=== PATIENT | female | born 1980 | race Caucasian/White ===

== ENCOUNTER 2021-05-28 07:20 | Emergency (ER) | payer SELFPAY ==
--- NOTE | 2021-05-28 07:58 | EDM.PDOC ---
ED HPI GENERAL MEDICAL PROBLEM - General Chief Complaint: Genitourinary Problem Stated Complaint: POSS UTI Time Seen by Provider: 05/28/21 07:41 Source of Information: Reports: Patient History Limitations: Reports: No Limitations - History of Present Illness INITIAL COMMENTS - FREE TEXT/NARRATIVE: The patient presents with dysuria, frequency and urgency. This has been going on for 2 days. She has some low abdominal pain. She has no flank pain or fever. She has no nausea or vomiting. She did have a UTI earlier in the month and was put on bactrim and now it is back. Onset: Gradual Duration: Day(s): (2) Quality: Reports: Burning Severity: Moderate Improves with: Reports: None Worsens with: Reports: None Associated Symptoms: Reports: No Other Symptoms Bladder Pain Score (Numeric/FACES): 10 - Related Data Allergies Allergy/AdvReac Type Severity Reaction Status Date / Time risperidone [From Risperdal] Allergy Swollen Verified 05/28/21 07:49 Tongue Home Meds: Home Meds Hydrocodone/Acetaminophen [Hydrocodone-Acetamin 5-325 mg] 1 - 2 each PO Q6H PRN #6 tablet 05/28/21 [Rx] cephALEXin [Keflex] 500 mg PO BID #14 cap 05/28/21 [Rx] Social & Family History - Tobacco Use Tobacco Use Status *Q: Current Every Day Tobacco User Years of Tobacco use: 24 Packs/Tins Daily: 1 - Caffeine Use Caffeine Use: Reports: Coffee, Energy Drinks, Soda, Tea - Recreational Drug Use Recreational Drug Use: No ED ROS GENERAL - Review of Systems Review Of Systems: See Below Constitutional: Reports: No Symptoms HEENT: Reports: No Symptoms Respiratory: Reports: No Symptoms Cardiovascular: Reports: No Symptoms Endocrine: Reports: No Symptoms GI/Abdominal: Reports: Abdominal Pain. Denies: Diarrhea, Nausea, Vomiting : Reports: Dysuria, Frequency, Urgency ED EXAM, RENAL/ - Physical Exam Exam: See Below Exam Limited By: No Limitations General Appearance: Alert, No Apparent Distress Ears: Normal External Exam Nose: Normal Inspection Head: Atraumatic, Normocephalic Neck: Normal Inspection Respiratory/Chest: No Respiratory Distress, Lungs Clear, Normal Breath Sounds Cardiovascular: Regular Rate, Rhythm, No Edema, No Murmur GI/Abdominal: Soft, No Organomegaly, No Mass, Tender (Mild tenderness to the lower abdomen) Course - Vital Signs Last Recorded V/S: Last Vital Signs Temp 97.0 F 05/28/21 07:40 Pulse 90 05/28/21 07:40 Resp 18 05/28/21 07:40 BP 117/92 H 05/28/21 07:40 Pulse Ox 99 05/28/21 07:40 - Orders/Labs/Meds Orders: Active Orders 24 hr Category Date Time Status UA W/MICROSCOPIC [URIN] Stat Lab 05/28/21 07:42 Results Phenazopyridine [Urinary Pain Relief] Med 05/28/21 09:00 Active 95 mg PO TIDPC Medication Orders Phenazopyridine HCl (Phenazopyridine 95 Mg Tab) 95 mg PO TIDPC [facility] Labs: Laboratory Tests 05/28/21 Range/Units 07:42 Urine Color Yellow (Yellow) Urine Appearance Clear (Clear) Urine pH 6.0 (5.0-8.0) Ur Specific [place] > or = 1.030 (1.005-1.030) Urine Protein 1+ H (Negative) Urine Glucose (UA) Negative (Negative) Urine Ketones Trace H (Negative) Urine Occult Blood 2+ H (Negative) Urine Nitrite Positive H (Negative) Urine Bilirubin 1+ H (Negative) Urine Urobilinogen 2.0 H (0.2-1.0) Ur Leukocyte Esterase 1+ H (Negative) Meds: Medications Generic Name Dose Route Start Last Admin Trade Name Freq PRN Reason Stop Dose Admin Phenazopyridine HCl 95 mg 05/28/21 09:00 Phenazopyridine 95 Mg Tab PO TIDPC [facility] - Re-Assessments/Exams Free Text/Narrative Re-Assessment/Exam: 05/28/21 08:02 I ordered a UA and some pyridium. The UA shows a UTI. 05/28/21 08:07 I will get her on keflex and something for pain. Departure - Departure Time of Disposition: 08:10 Disposition: Home, Self-Care 01 Condition: Good Clinical Impression: UTI, Urinary tract infectious disease - Discharge Information *PRESCRIPTION DRUG MONITORING PROGRAM REVIEWED*: Not Applicable *COPY OF PRESCRIPTION DRUG MONITORING REPORT IN PATIENT SHELLY: Not Applicable Prescriptions: Hydrocodone/Acetaminophen [Hydrocodone-Acetamin 5-325 mg] 1 - 2 each PO Q6H PRN #6 tablet PRN Reason: Pain cephALEXin [Keflex] 500 mg PO BID #14 cap Referrals: PCP,None [Primary Care Provider] - Roseanna Knowles NP [Ordering Only Provider] - 1 Week Forms: ED Department Discharge Additional Instructions: Drink plenty of fluids. Take the keflex 2 times per day for 7 days. Take tylenol or motrin for pain. If that does not help, try the hydrocodone. Follow up with your provider within a week. Please return if you are worse. Sepsis Event Note (ED) - Focused Exam Vital Signs: Vital Signs Temp Pulse Resp BP Pulse Ox 05/28/21 07:40 97.0 F 90 18 117/92 H 99 - My Orders Last 24 Hours: My Active Orders 05/28/21 07:42 UA W/MICROSCOPIC [URIN] Stat 05/28/21 09:00 Phenazopyridine [Urinary Pain Relief] 95 mg PO TIDPC - Assessment/Plan Last 24 Hours: My Active Orders 05/28/21 07:42 UA W/MICROSCOPIC [URIN] Stat 05/28/21 09:00 Phenazopyridine [Urinary Pain Relief] 95 mg PO TIDPC
[2021-05-28] MEDS ORDERED: Phenazopyridine 95 MG Tab PO SCH (09:00)
== END 2021-05-28 08:43 | disposition home or self-care (01) ==
LOC: JD.ED 07:20
DX: N39.0 Urinary tract infection, site not specified (principal); Z88.8 Allergy status to other drugs, medicaments and biological substances; Z72.0 Tobacco use
CPT/HCPCS: 81001; 87086; 87088; 87186; 99283; A9270